=== PATIENT | female | born 1990 | race Caucasian/White ===

== ENCOUNTER 2018-07-30 03:49 | Emergency (ER) | payer MEDICAID ==
[~2018-07-30] VITALS: Ht 157.5 cm; Wt 81.8 kg
[2018-07-30 06:10] VITALS: BP 106/72
== END 2018-07-30 06:10 | disposition home or self-care (01) ==
LOC: ED 03:49
DX: K80.50 Calculus of bile duct without cholangitis or cholecystitis without obstruction (principal); K80.20 Calculus of gallbladder without cholecystitis without obstruction
CPT/HCPCS: J3010; Q0162

== ENCOUNTER 2018-09-18 20:37 | Emergency (ER) | payer MEDICAID ==
[2018-09-18 23:48] VITALS: BP 129/80
== END 2018-09-18 23:48 | disposition home or self-care (01) ==
LOC: ED 20:37
DX: J06.9 Acute upper respiratory infection, unspecified (principal)